=== PATIENT | female | born 1930 | race Caucasian/White ===

== ENCOUNTER 2017-12-13 11:30 | Inpatient (IN) | payer MEDICARE, MEDICAID ==
[~2017-12-13] VITALS: Ht 152.4 cm; Wt 48.1 kg
[~2017-12-13 11:30] MED LIST: LEVO75TA7 PO; OLME5TAB3 PO
[2017-12-13] MEDS ORDERED: Z GUARD REMEDY PASTE 57 GM TUBE TOP PRN (13:00)
[2017-12-13 13:16] VITALS: BP 165/60
[2017-12-13] MEDS ORDERED: ESCI20TA PO (13:58)
[2017-12-13] MEDS ORDERED: APIX2.5T PO (13:58)
[2017-12-13] MEDS ORDERED: ERGO500014 PO (13:58)
[2017-12-13] MEDS ORDERED: AMLO5TAB4 PO (13:58)
[2017-12-13] MEDS ORDERED: METO-356 PO (13:58)
[2017-12-13] MEDS ORDERED: NITR0.4T48 SL (13:58)
[2017-12-13] MEDS ORDERED: LEVO100T78 PO (13:58)
[2017-12-13] MEDS ORDERED: DENO60DI IM (13:58)
[2017-12-13] MEDS ORDERED: ACET-2605 PO (13:58)
[2017-12-13] MEDS ORDERED: NITROGLYCERIN 0.4 MG/TAB BOTTLE SL PRN (20:15)
[2017-12-13] MEDS ORDERED: APIXABAN 5 MG TABLET PO ONE ×2 (20:30→20:45)
[2017-12-13 20:59] VITALS: BP 124/61
[2017-12-13] MEDS: MAGNESIUM HYDROXIDE 30 ML LIQUID UDC PO PRN (21:18)
[2017-12-13] MEDS: ZOLPIDEM 5 MG TABLET PO PRN (21:52)
[2017-12-14] MEDS: LEVOTHYROXINE SODIUM 100 MCG TABLET PO SCH ×4 (06:40→16:30)
[2017-12-14 07:29] LABS: EOSINOPHILS # (AUTO) 0.2 K/uL (0.0-0.7); MONOCYTES # (AUTO) 0.7 K/uL (2.0-10.0)
[2017-12-14 07:31] LABS: BASOPHILS % (AUTO) 0.5 % (0.0-2.0); EOSINOPHILS % (AUTO) 2.6 % (0.0-7.0); LYMPHOCYTES # (AUTO) 1.3 K/uL (20.0-40.0); LYMPHOCYTES % (AUTO) 15.8 % (20.5-51.5); MEAN CORPUSCULAR VOLUME 94.9 fL (75.5-95.3); MONOCYTES % (AUTO) 9.1 % (0.0-11.0); NEUTROPHILS # (AUTO) 5.8 K/uL (1.8-8.9)
[2017-12-14 07:34] LABS: MEAN CORPUSCULAR HGB CONC 34 g/dL (32.3-35.6)
[2017-12-14 07:35] LABS: MEAN CORPUSCULAR HEMOGLOBIN 32.5 uug (24.7-32.8); PLATELET COUNT (AUTO) 354 K/uL (179-408)
[2017-12-14 07:38] LABS: HEMOGLOBIN 7.4 g/dL (10.9-14.3)
[2017-12-14 07:39] LABS: RED BLOOD CELL COUNT(AUTO) 2.24 MIL/uL (3.63-4.92)
[2017-12-14 07:40] LABS: CARBON DIOXIDE 25 mmol/L (21-32); CHLORIDE 99 mmol/L (98-107); CHOLESTEROL 117 mg/dL (<200); CREATININE 0.4 mg/dL (0.6-1.3); GLUCOSE 97 mg/dL (74-106); HDL CHOLESTEROL 46 mg/dL (40-60); HEMATOCRIT 21.5 % (31.2-41.9); MAGNESIUM 2.4 mg/dL (1.8-2.4); PHOSPHOROUS 1.8 mg/dL (2.5-4.9); POTASSIUM 3.9 mmol/L (3.5-5.1); TRIGLYCERIDES 39 MG/DL (30-150); UREA NITROGEN, BLOOD 11 mg/dL (7-18); WHITE BLOOD COUNT (AUTO) 8.1 K/uL (3.8-11.8)
[2017-12-14 08:56] VITALS: BP 127/74
[2017-12-14] MEDS ORDERED: LEVOTHYROXINE SODIUM 75 MCG TABLET PO SCH (09:00)
[2017-12-14] MEDS: AMLODIPINE 5 MG TABLET PO SCH (09:00)
[2017-12-14] MEDS ORDERED: APIXABAN 5 MG TABLET PO SCH ×2 (09:00→17:00)
[2017-12-14] MEDS: LOSARTAN POTASSIUM 25 MG TABLET PO SCH (09:00)
[2017-12-14] MEDS: METOPROLOL SUCCINATE XL 25 MG TAB.SR.24H PO SCH (09:00)
[2017-12-14] MEDS ORDERED: APIXABAN 5 MG TABLET PO ONE (09:15)
[2017-12-14 10:25] LABS: IRON, SERUM 44 ug/dL (50-175)
[2017-12-14] MEDS: ESCITALOPRAM OXALATE 10 MG TABLET PO SCH (10:33)
[2017-12-14] MEDS: ACETAMINOPHEN ES 500 MG TABLET PO PRN ×2 (10:40→19:28)
[2017-12-14 11:30] LABS: *OCCULT BLOOD STOOL NEGATIVE (NEGATIVE)
[2017-12-14] MEDS ORDERED: NEUTRA PHOS PACKET PO ONE (15:30)
[2017-12-14] MEDS: ELIQUIS 2.5 MG ***PT'S OWN MED PO SCH (17:01)
[2017-12-14] MEDS: ZOLPIDEM 5 MG TABLET PO PRN (19:27)
[2017-12-14 20:38] VITALS: BP 129/72
[2017-12-15 07:00] VITALS: BP 134/71
[2017-12-15 07:18] LABS: CARBON DIOXIDE 24 mmol/L (21-32); CHLORIDE 97 mmol/L (98-107); CREATININE 0.4 mg/dL (0.6-1.3); GLUCOSE 113 mg/dL (74-106); PHOSPHOROUS 2.3 mg/dL (2.5-4.9); POTASSIUM 4.1 mmol/L (3.5-5.1); UREA NITROGEN, BLOOD 9 mg/dL (7-18)
[2017-12-15] MEDS: LEVOTHYROXINE SODIUM 100 MCG TABLET PO SCH (07:48)
[2017-12-15] MEDS: ELIQUIS 2.5 MG ***PT'S OWN MED PO SCH ×2 (08:34→17:14)
[2017-12-15] MEDS: LOSARTAN POTASSIUM 25 MG TABLET PO SCH (08:50)
[2017-12-15] MEDS: AMLODIPINE 5 MG TABLET PO SCH (08:50)
[2017-12-15] MEDS: ESCITALOPRAM OXALATE 10 MG TABLET PO SCH (08:50)
[2017-12-15] MEDS: METOPROLOL SUCCINATE XL 25 MG TAB.SR.24H PO SCH (08:51)
[2017-12-15] MEDS: ACETAMINOPHEN ES 500 MG TABLET PO PRN (09:22)
[2017-12-15] MEDS: SODIUM CHLORIDE 1,000 MG TABLET PO SCH ×2 (13:46→17:14)
[2017-12-15] MEDS ORDERED: NEUTRA PHOS PACKET PO ONE (16:00)
[2017-12-15] MEDS: ZOLPIDEM 5 MG TABLET PO PRN (19:50)
[2017-12-15] MEDS: MAGNESIUM HYDROXIDE 30 ML LIQUID UDC PO PRN (19:51)
[2017-12-15 20:12] VITALS: BP 136/80
[2017-12-16] MEDS: ACETAMINOPHEN ES 500 MG TABLET PO PRN ×2 (00:14→20:11)
[2017-12-16] MEDS: LEVOTHYROXINE SODIUM 100 MCG TABLET PO SCH (06:13)
[2017-12-16 07:13] LABS: BASOPHILS % (AUTO) 0.6 % (0.0-2.0); EOSINOPHILS # (AUTO) 0.2 K/uL (0.0-0.7); EOSINOPHILS % (AUTO) 2.4 % (0.0-7.0); HEMATOCRIT 23.9 % (31.2-41.9); HEMOGLOBIN 8.1 g/dL (10.9-14.3); LYMPHOCYTES # (AUTO) 1.2 K/uL (20.0-40.0); LYMPHOCYTES % (AUTO) 15.7 % (20.5-51.5); MEAN CORPUSCULAR HEMOGLOBIN 32.7 uug (24.7-32.8); MEAN CORPUSCULAR HGB CONC 34 g/dL (32.3-35.6); MEAN CORPUSCULAR VOLUME 96.3 fL (75.5-95.3); MONOCYTES # (AUTO) 0.7 K/uL (2.0-10.0); MONOCYTES % (AUTO) 9.4 % (0.0-11.0); NEUTROPHILS # (AUTO) 5.4 K/uL (1.8-8.9); NEUTROPHILS % (AUTO) 71.9 % (38.5-71.5); PLATELET COUNT (AUTO) 459 K/uL (179-408); WHITE BLOOD COUNT (AUTO) 7.5 K/uL (3.8-11.8)
[2017-12-16 07:15] LABS: RED BLOOD CELL COUNT(AUTO) 2.49 MIL/uL (3.63-4.92)
[2017-12-16 07:24] LABS: CARBON DIOXIDE 28 mmol/L (21-32); CHLORIDE 100 mmol/L (98-107); CREATININE 0.5 mg/dL (0.6-1.3); GLUCOSE 104 mg/dL (74-106); MAGNESIUM 2.3 mg/dL (1.8-2.4); PHOSPHOROUS 2.2 mg/dL (2.5-4.9); POTASSIUM 3.9 mmol/L (3.5-5.1); UREA NITROGEN, BLOOD 11 mg/dL (7-18)
[2017-12-16] MEDS: ELIQUIS 2.5 MG ***PT'S OWN MED PO SCH ×2 (08:30→16:06)
[2017-12-16] MEDS: ESCITALOPRAM OXALATE 10 MG TABLET PO SCH (09:00)
[2017-12-16] MEDS: SODIUM CHLORIDE 1,000 MG TABLET PO SCH ×3 (09:00→16:06)
[2017-12-16] MEDS: AMLODIPINE 5 MG TABLET PO SCH (09:00)
[2017-12-16] MEDS: LOSARTAN POTASSIUM 25 MG TABLET PO SCH (09:00)
[2017-12-16] MEDS: METOPROLOL SUCCINATE XL 25 MG TAB.SR.24H PO SCH (09:00)
[2017-12-16 09:12] VITALS: BP 132/82
[2017-12-16] MEDS ORDERED: NEUTRA PHOS PACKET PO ONE (15:15)
[2017-12-16 19:59] VITALS: BP 131/75
[2017-12-17] MEDS: LEVOTHYROXINE SODIUM 100 MCG TABLET PO SCH (06:45)
[2017-12-17 06:52] LABS: BASOPHILS # (AUTO) 0.1 K/uL (0.0-8.0); BASOPHILS % (AUTO) 0.7 % (0.0-2.0); EOSINOPHILS # (AUTO) 0.2 K/uL (0.0-0.7); EOSINOPHILS % (AUTO) 1.7 % (0.0-7.0); HEMATOCRIT 24.1 % (31.2-41.9); HEMOGLOBIN 8.3 g/dL (10.9-14.3); LYMPHOCYTES # (AUTO) 1.2 K/uL (20.0-40.0); LYMPHOCYTES % (AUTO) 11.8 % (20.5-51.5); MEAN CORPUSCULAR HEMOGLOBIN 33.5 uug (24.7-32.8); MEAN CORPUSCULAR HGB CONC 35 g/dL (32.3-35.6); MEAN CORPUSCULAR VOLUME 96.7 fL (75.5-95.3); MONOCYTES # (AUTO) 0.9 K/uL (2.0-10.0); MONOCYTES % (AUTO) 9.5 % (0.0-11.0); NEUTROPHILS # (AUTO) 7.5 K/uL (1.8-8.9); NEUTROPHILS % (AUTO) 76.3 % (38.5-71.5); PLATELET COUNT (AUTO) 473 K/uL (179-408); WHITE BLOOD COUNT (AUTO) 9.8 K/uL (3.8-11.8)
[2017-12-17 06:58] LABS: RED BLOOD CELL COUNT(AUTO) 2.49 MIL/uL (3.63-4.92)
[2017-12-17] MEDS: ELIQUIS 2.5 MG ***PT'S OWN MED PO SCH ×2 (08:55→17:29)
[2017-12-17] MEDS: SODIUM CHLORIDE 1,000 MG TABLET PO SCH ×3 (08:55→17:29)
[2017-12-17] MEDS: LOSARTAN POTASSIUM 25 MG TABLET PO SCH (08:58)
[2017-12-17] MEDS: ESCITALOPRAM OXALATE 10 MG TABLET PO SCH (09:00)
[2017-12-17] MEDS: AMLODIPINE 5 MG TABLET PO SCH (09:00)
[2017-12-17] MEDS: METOPROLOL SUCCINATE XL 25 MG TAB.SR.24H PO SCH (09:00)
[2017-12-17 10:25] VITALS: BP 117/76
[2017-12-17] MEDS: MAGNESIUM HYDROXIDE 30 ML LIQUID UDC PO PRN (11:21)
[2017-12-17 20:17] VITALS: BP 124/63
[2017-12-17] MEDS: ZOLPIDEM 5 MG TABLET PO PRN (20:20)
[2017-12-18] MEDS: LEVOTHYROXINE SODIUM 100 MCG TABLET PO SCH (06:31)
[2017-12-18 07:44] VITALS: BP 132/69
[2017-12-18] MEDS: ELIQUIS 2.5 MG ***PT'S OWN MED PO SCH ×2 (08:04→17:28)
[2017-12-18] MEDS: SODIUM CHLORIDE 1,000 MG TABLET PO SCH ×3 (08:04→17:28)
[2017-12-18] MEDS: AMLODIPINE 5 MG TABLET PO SCH (08:04)
[2017-12-18] MEDS: METOPROLOL SUCCINATE XL 25 MG TAB.SR.24H PO SCH (08:04)
[2017-12-18] MEDS: LOSARTAN POTASSIUM 25 MG TABLET PO SCH (08:05)
[2017-12-18] MEDS: ESCITALOPRAM OXALATE 10 MG TABLET PO SCH (08:05)
[2017-12-18 19:40] VITALS: BP 151/82
[2017-12-18] MEDS: MAGNESIUM HYDROXIDE 30 ML LIQUID UDC PO PRN (21:01)
[2017-12-18] MEDS: ZOLPIDEM 5 MG TABLET PO PRN (21:02)
[2017-12-19] MEDS: LEVOTHYROXINE SODIUM 100 MCG TABLET PO SCH (06:19)
[2017-12-19 07:00] VITALS: BP 142/72
[2017-12-19] MEDS: ELIQUIS 2.5 MG ***PT'S OWN MED PO SCH ×2 (08:50→17:01)
[2017-12-19] MEDS: METOPROLOL SUCCINATE XL 25 MG TAB.SR.24H PO SCH (09:00)
[2017-12-19] MEDS: LOSARTAN POTASSIUM 25 MG TABLET PO SCH (09:00)
[2017-12-19] MEDS: AMLODIPINE 5 MG TABLET PO SCH (09:00)
[2017-12-19] MEDS: ESCITALOPRAM OXALATE 10 MG TABLET PO SCH (09:00)
[2017-12-19] MEDS: SODIUM CHLORIDE 1,000 MG TABLET PO SCH ×3 (09:00→17:01)
[2017-12-19] MEDS: MAGNESIUM HYDROXIDE 30 ML LIQUID UDC PO PRN (17:01)
[2017-12-19 21:18] VITALS: BP 138/71
[2017-12-20] MEDS: LEVOTHYROXINE SODIUM 100 MCG TABLET PO SCH (06:30)
[2017-12-20 07:00] VITALS: BP 135/82
[2017-12-20] MEDS: ELIQUIS 2.5 MG ***PT'S OWN MED PO SCH ×2 (08:01→17:03)
[2017-12-20] MEDS: SODIUM CHLORIDE 1,000 MG TABLET PO SCH ×3 (08:01→17:03)
[2017-12-20] MEDS: MAGNESIUM HYDROXIDE 30 ML LIQUID UDC PO PRN (08:05)
[2017-12-20] MEDS: LOSARTAN POTASSIUM 25 MG TABLET PO SCH (08:07)
[2017-12-20] MEDS: AMLODIPINE 5 MG TABLET PO SCH (08:08)
[2017-12-20] MEDS: ESCITALOPRAM OXALATE 10 MG TABLET PO SCH (08:08)
[2017-12-20] MEDS: METOPROLOL SUCCINATE XL 25 MG TAB.SR.24H PO SCH (08:09)
[2017-12-20] MEDS: CYANOCOBALAMIN 1000 MCG/ML VIAL IM SCH (17:00)
[2017-12-20] MEDS: ZOLPIDEM 5 MG TABLET PO PRN (20:20)
[2017-12-20 20:27] VITALS: BP 136/78
[2017-12-21] MEDS: LEVOTHYROXINE SODIUM 100 MCG TABLET PO SCH (06:32)
[2017-12-21] MEDS: ELIQUIS 2.5 MG ***PT'S OWN MED PO SCH ×2 (08:28→16:46)
[2017-12-21] MEDS: SODIUM CHLORIDE 1,000 MG TABLET PO SCH ×3 (08:28→16:46)
[2017-12-21] MEDS: ESCITALOPRAM OXALATE 10 MG TABLET PO SCH (08:30)
[2017-12-21] MEDS: LOSARTAN POTASSIUM 25 MG TABLET PO SCH (08:30)
[2017-12-21] MEDS: CYANOCOBALAMIN 1000 MCG/ML VIAL IM SCH (08:32)
[2017-12-21] MEDS: AMLODIPINE 5 MG TABLET PO SCH (08:39)
[2017-12-21] MEDS: METOPROLOL SUCCINATE XL 25 MG TAB.SR.24H PO SCH (08:39)
[2017-12-21] MEDS ORDERED: CYANOCOBALAMIN 1000 MCG/ML VIAL IM SCH (09:00)
[2017-12-21 09:25] VITALS: BP 161/88
[2017-12-21] MEDS: SULFAMETH/TRIMETH 800/160 MG TABLET PO SCH ×2 (13:26→16:46)
[2017-12-21] MEDS: NEOMY/BACITRAC/POLYMI OINT 28.35 GM TUBE TOP SCH ×2 (16:46→16:50)
[2017-12-21 19:51] VITALS: BP 142/70
[2017-12-21 20:01] VITALS: BP 142/70
[2017-12-21 20:09] VITALS: BP 137/75
[2017-12-21] MEDS: ZOLPIDEM 5 MG TABLET PO PRN (20:38)
[2017-12-22] MEDS: ACETAMINOPHEN ES 500 MG TABLET PO PRN (02:18)
[2017-12-22] MEDS: LEVOTHYROXINE SODIUM 100 MCG TABLET PO SCH (06:20)
[2017-12-22 07:30] VITALS: BP 132/77
[2017-12-22] MEDS: SODIUM CHLORIDE 1,000 MG TABLET PO SCH ×3 (08:27→17:10)
[2017-12-22] MEDS: SULFAMETH/TRIMETH 800/160 MG TABLET PO SCH ×2 (08:27→17:10)
[2017-12-22] MEDS: ELIQUIS 2.5 MG ***PT'S OWN MED PO SCH ×2 (08:28→17:10)
[2017-12-22] MEDS: CYANOCOBALAMIN 1000 MCG/ML VIAL IM SCH (08:29)
[2017-12-22] MEDS: LOSARTAN POTASSIUM 25 MG TABLET PO SCH (08:30)
[2017-12-22] MEDS: AMLODIPINE 5 MG TABLET PO SCH (08:34)
[2017-12-22] MEDS: ESCITALOPRAM OXALATE 10 MG TABLET PO SCH (08:34)
[2017-12-22] MEDS: METOPROLOL SUCCINATE XL 25 MG TAB.SR.24H PO SCH (08:34)
[2017-12-22] MEDS: NEOMY/BACITRAC/POLYMI OINT 28.35 GM TUBE TOP SCH ×2 (10:17→17:00)
[2017-12-22 19:57] VITALS: BP 120/73
[2017-12-22] MEDS: ZOLPIDEM 5 MG TABLET PO PRN (21:28)
[2017-12-23] MEDS: LEVOTHYROXINE SODIUM 100 MCG TABLET PO SCH (06:35)
[2017-12-23 07:30] VITALS: BP 136/71
[2017-12-23 07:34] LABS: BASOPHILS # (AUTO) 0.1 K/uL (0.0-8.0); BASOPHILS % (AUTO) 0.9 % (0.0-2.0); EOSINOPHILS # (AUTO) 0.2 K/uL (0.0-0.7); EOSINOPHILS % (AUTO) 2.1 % (0.0-7.0); HEMATOCRIT 29.7 % (31.2-41.9); HEMOGLOBIN 9.8 g/dL (10.9-14.3); LYMPHOCYTES # (AUTO) 1.2 K/uL (20.0-40.0); LYMPHOCYTES % (AUTO) 16.2 % (20.5-51.5); MEAN CORPUSCULAR HEMOGLOBIN 32.9 uug (24.7-32.8); MEAN CORPUSCULAR HGB CONC 33 g/dL (32.3-35.6); MEAN CORPUSCULAR VOLUME 99.8 fL (75.5-95.3); MONOCYTES # (AUTO) 0.6 K/uL (2.0-10.0); MONOCYTES % (AUTO) 8.4 % (0.0-11.0); NEUTROPHILS # (AUTO) 5.4 K/uL (1.8-8.9); NEUTROPHILS % (AUTO) 72.4 % (38.5-71.5); PLATELET COUNT (AUTO) 494 K/uL (179-408); RED BLOOD CELL COUNT(AUTO) 2.98 MIL/uL (3.63-4.92); WHITE BLOOD COUNT (AUTO) 7.5 K/uL (3.8-11.8)
[2017-12-23 07:37] LABS: ALANINE AMINOTRANSFERASE 15 U/L (14-59); ALKALINE PHOSPHATASE 124 U/L (50-136); ASPARTATE AMINOTRANSFERASE 21 U/L (15-37); BILIRUBIN,TOTAL 1.2 mg/dL (0.2-1.0); CARBON DIOXIDE 26 mmol/L (21-32); CHLORIDE 101 mmol/L (98-107); CREATININE 0.6 mg/dL (0.6-1.3); GLUCOSE 105 mg/dL (74-106); PHOSPHOROUS 2.9 mg/dL (2.5-4.9); POTASSIUM 4.2 mmol/L (3.5-5.1); TOTAL PROTEIN, SERUM 6.2 g/dL (6.4-8.2); UREA NITROGEN, BLOOD 13 mg/dL (7-18)
[2017-12-23] MEDS: CYANOCOBALAMIN 1000 MCG/ML VIAL IM SCH (08:39)
[2017-12-23] MEDS: ESCITALOPRAM OXALATE 10 MG TABLET PO SCH (08:40)
[2017-12-23] MEDS: ELIQUIS 2.5 MG ***PT'S OWN MED PO SCH ×2 (08:40→17:23)
[2017-12-23] MEDS: SODIUM CHLORIDE 1,000 MG TABLET PO SCH ×3 (08:40→17:23)
[2017-12-23] MEDS: SULFAMETH/TRIMETH 800/160 MG TABLET PO SCH ×2 (08:40→17:23)
[2017-12-23] MEDS: LOSARTAN POTASSIUM 25 MG TABLET PO SCH (08:40)
[2017-12-23] MEDS: NEOMY/BACITRAC/POLYMI OINT 28.35 GM TUBE TOP SCH ×2 (08:41→17:25)
[2017-12-23] MEDS: AMLODIPINE 5 MG TABLET PO SCH (08:41)
[2017-12-23] MEDS: METOPROLOL SUCCINATE XL 25 MG TAB.SR.24H PO SCH (08:41)
[2017-12-23] MEDS: ZOLPIDEM 5 MG TABLET PO PRN (18:33)
[2017-12-23 19:30] VITALS: BP 150/67
[2017-12-24] MEDS: LEVOTHYROXINE SODIUM 100 MCG TABLET PO SCH (06:37)
[2017-12-24 08:02] VITALS: BP 143/84
[2017-12-24] MEDS: CYANOCOBALAMIN 1000 MCG/ML VIAL IM SCH (08:40)
[2017-12-24] MEDS: SULFAMETH/TRIMETH 800/160 MG TABLET PO SCH ×2 (08:40→17:08)
[2017-12-24] MEDS: SODIUM CHLORIDE 1,000 MG TABLET PO SCH ×3 (08:41→17:08)
[2017-12-24] MEDS: ELIQUIS 2.5 MG ***PT'S OWN MED PO SCH ×2 (08:41→17:08)
[2017-12-24] MEDS: LOSARTAN POTASSIUM 25 MG TABLET PO SCH (08:42)
[2017-12-24] MEDS: NEOMY/BACITRAC/POLYMI OINT 28.35 GM TUBE TOP SCH ×2 (08:42→17:08)
[2017-12-24] MEDS: AMLODIPINE 5 MG TABLET PO SCH (08:43)
[2017-12-24] MEDS: ESCITALOPRAM OXALATE 10 MG TABLET PO SCH (08:43)
[2017-12-24] MEDS: METOPROLOL SUCCINATE XL 25 MG TAB.SR.24H PO SCH (08:43)
[2017-12-24 19:57] VITALS: BP 144/81
[2017-12-24] MEDS: ZOLPIDEM 5 MG TABLET PO PRN (20:41)
[2017-12-25] MEDS: ACETAMINOPHEN ES 500 MG TABLET PO PRN (01:15)
[2017-12-25] MEDS: LEVOTHYROXINE SODIUM 100 MCG TABLET PO SCH (06:44)
[2017-12-25 07:02] VITALS: BP 139/90
[2017-12-25] MEDS: SODIUM CHLORIDE 1,000 MG TABLET PO SCH ×3 (08:36→17:30)
[2017-12-25] MEDS: CYANOCOBALAMIN 1000 MCG/ML VIAL IM SCH (08:36)
[2017-12-25] MEDS: LOSARTAN POTASSIUM 25 MG TABLET PO SCH ×2 (08:37→09:00)
[2017-12-25] MEDS: ESCITALOPRAM OXALATE 10 MG TABLET PO SCH ×2 (08:37→09:00)
[2017-12-25] MEDS: ELIQUIS 2.5 MG ***PT'S OWN MED PO SCH ×2 (08:37→17:30)
[2017-12-25] MEDS: NEOMY/BACITRAC/POLYMI OINT 28.35 GM TUBE TOP SCH ×2 (08:38→17:30)
[2017-12-25] MEDS: METOPROLOL SUCCINATE XL 25 MG TAB.SR.24H PO SCH (08:43)
[2017-12-25] MEDS: AMLODIPINE 5 MG TABLET PO SCH (08:43)
[2017-12-25 19:57] VITALS: BP 118/73
[2017-12-25] MEDS: ZOLPIDEM 5 MG TABLET PO PRN (21:52)
[2017-12-26] MEDS: LEVOTHYROXINE SODIUM 100 MCG TABLET PO SCH (06:23)
[2017-12-26] MEDS: ELIQUIS 2.5 MG ***PT'S OWN MED PO SCH ×2 (08:17→17:49)
[2017-12-26] MEDS: SODIUM CHLORIDE 1,000 MG TABLET PO SCH ×3 (08:17→17:49)
[2017-12-26 08:18] VITALS: BP 142/89
[2017-12-26] MEDS: CYANOCOBALAMIN 1000 MCG/ML VIAL IM SCH (08:18)
[2017-12-26] MEDS: ESCITALOPRAM OXALATE 10 MG TABLET PO SCH (08:19)
[2017-12-26] MEDS: LOSARTAN POTASSIUM 25 MG TABLET PO SCH (08:19)
[2017-12-26] MEDS: AMLODIPINE 5 MG TABLET PO SCH (08:19)
[2017-12-26] MEDS: METOPROLOL SUCCINATE XL 25 MG TAB.SR.24H PO SCH (08:19)
[2017-12-26] MEDS: NEOMY/BACITRAC/POLYMI OINT 28.35 GM TUBE TOP SCH ×2 (08:20→17:50)
[2017-12-26 20:11] VITALS: BP 142/67
[2017-12-26] MEDS: ZOLPIDEM 5 MG TABLET PO PRN (20:46)
[2017-12-27] MEDS: LEVOTHYROXINE SODIUM 100 MCG TABLET PO SCH (06:50)
[2017-12-27 08:00] VITALS: BP 155/89
[2017-12-27] MEDS: SODIUM CHLORIDE 1,000 MG TABLET PO SCH ×3 (08:31→17:26)
[2017-12-27] MEDS: ELIQUIS 2.5 MG ***PT'S OWN MED PO SCH ×2 (08:31→17:26)
[2017-12-27] MEDS: CYANOCOBALAMIN 1000 MCG/ML VIAL IM SCH (08:31)
[2017-12-27] MEDS: LOSARTAN POTASSIUM 25 MG TABLET PO SCH (08:32)
[2017-12-27] MEDS: ESCITALOPRAM OXALATE 10 MG TABLET PO SCH (08:32)
[2017-12-27] MEDS: AMLODIPINE 5 MG TABLET PO SCH (08:33)
[2017-12-27] MEDS: METOPROLOL SUCCINATE XL 25 MG TAB.SR.24H PO SCH (08:33)
[2017-12-27] MEDS: NEOMY/BACITRAC/POLYMI OINT 28.35 GM TUBE TOP SCH ×2 (08:34→17:27)
[2017-12-27 19:30] VITALS: BP 152/79
[2017-12-27] MEDS: ACETAMINOPHEN ES 500 MG TABLET PO PRN (21:57)
[2017-12-27] MEDS ORDERED: ZOLPIDEM 5 MG TABLET PO PRN (22:30)
[2017-12-28] MEDS: LEVOTHYROXINE SODIUM 100 MCG TABLET PO SCH (06:41)
[2017-12-28 07:00] VITALS: BP 159/85
[2017-12-28] MEDS: ELIQUIS 2.5 MG ***PT'S OWN MED PO SCH ×2 (08:28→17:11)
[2017-12-28] MEDS: CYANOCOBALAMIN 1000 MCG/ML VIAL IM SCH (08:28)
[2017-12-28] MEDS: SODIUM CHLORIDE 1,000 MG TABLET PO SCH ×3 (08:28→17:11)
[2017-12-28] MEDS: LOSARTAN POTASSIUM 25 MG TABLET PO SCH (08:29)
[2017-12-28] MEDS: ESCITALOPRAM OXALATE 10 MG TABLET PO SCH (08:29)
[2017-12-28] MEDS: AMLODIPINE 5 MG TABLET PO SCH (08:29)
[2017-12-28] MEDS: NEOMY/BACITRAC/POLYMI OINT 28.35 GM TUBE TOP SCH ×2 (08:29→17:11)
[2017-12-28] MEDS: METOPROLOL SUCCINATE XL 25 MG TAB.SR.24H PO SCH (08:29)
[2017-12-28 19:42] VITALS: BP 135/80
[2017-12-29] MEDS: LEVOTHYROXINE SODIUM 100 MCG TABLET PO SCH (06:43)
[2017-12-29] MEDS: SODIUM CHLORIDE 1,000 MG TABLET PO SCH ×2 (08:18→12:59)
[2017-12-29] MEDS: CYANOCOBALAMIN 1000 MCG/ML VIAL IM SCH (08:19)
[2017-12-29] MEDS: ELIQUIS 2.5 MG ***PT'S OWN MED PO SCH (08:19)
[2017-12-29] MEDS: NEOMY/BACITRAC/POLYMI OINT 28.35 GM TUBE TOP SCH (08:21)
[2017-12-29] MEDS: AMLODIPINE 5 MG TABLET PO SCH (08:26)
[2017-12-29] MEDS: LOSARTAN POTASSIUM 25 MG TABLET PO SCH (08:26)
[2017-12-29] MEDS: ESCITALOPRAM OXALATE 10 MG TABLET PO SCH (08:26)
[2017-12-29] MEDS: METOPROLOL SUCCINATE XL 25 MG TAB.SR.24H PO SCH (08:27)
[2017-12-29 09:57] VITALS: BP 159/58
== END 2017-12-29 17:56 | disposition home health service (06) | DRG 560 ==
LOC: SA1 17:07
PROVIDERS: ADMIT Physical Medicine & Rehabilitation Pain Medicine; ATTEND Physical Medicine & Rehabilitation Pain Medicine
DX: S72.142D Displaced intertrochanteric fracture of left femur, subsequent encounter for closed fracture with routine healing (principal); E22.2 Syndrome of inappropriate secretion of antidiuretic hormone; E46 Unspecified protein-calorie malnutrition; D68.59 Other primary thrombophilia; L03.116 Cellulitis of left lower limb; I48.91 Unspecified atrial fibrillation; E03.9 Hypothyroidism, unspecified; D50.9 Iron deficiency anemia, unspecified; T81.4XXA Infection following a procedure, initial encounter; E53.8 Deficiency of other specified B group vitamins; E78.5 Hyperlipidemia, unspecified; I10 Essential (primary) hypertension; W19.XXXD Unspecified fall, subsequent encounter; K21.9 Gastro-esophageal reflux disease without esophagitis; R26.9 Unspecified abnormalities of gait and mobility; Z68.20 Body mass index [BMI] 20.0-20.9, adult; E55.9 Vitamin D deficiency, unspecified; F01.50 Vascular dementia, unspecified severity, without behavioral disturbance, psychotic disturbance, mood disturbance, and anxiety; F32.9 Major depressive disorder, single episode, unspecified; Y83.8 Other surgical procedures as the cause of abnormal reaction of the patient, or of later complication, without mention of misadventure at the time of the procedure; Y92.239 Unspecified place in hospital as the place of occurrence of the external cause; M81.0 Age-related osteoporosis without current pathological fracture; I69.398 Other sequelae of cerebral infarction
CPT/HCPCS: 36415; 83550; 83735; 84100; 85025; 92526; 92610; 97110; 97112; 97116; 97530; 97535; A4663; A9150; J3420

== ENCOUNTER → 2019-05-23 | Emergency (ER) | payer MEDICARE, MEDICAID ==
[~2019-05-23] VITALS: Ht 165.1 cm; Wt 54.4 kg
[~2019-05-23] MED LIST changes: +ACET-2605 PO; +AMLO10TA7 PO; +AMLO5TAB4 PO; +APIX2.5T PO; +ATOR40TA PO; +DENO60DI IM; +DOCU100C36 PO; +ERGO500014 PO; +ESCI20TA PO; +IOHEXOL 350 100 ML INFUS..BTL ONE; +IV NORMAL SALINE 250 ML IV ONE; +LABETALOL HCL 100 MG/20 ML VIAL IV ONE; +LABETALOL HCL 100 MG/20 ML VIAL ONE; +LEVETIRACETAM 500 MG/5 ML VIAL IV ONE; +LEVETIRACETAM IV 500 MG in IV DEXTROSE 5% 100 ML IV ONE; +LEVO100T78 PO; +METO-356 PO; +METO25TA6 PO; +NITR0.4T48 SL; +ONDA4TAB5 PO; +ONDANSETRON 4 MG/2 ML VIAL IV ONE; +ONDANSETRON 4 MG/2 ML VIAL ONE; +PANT40TA4 PO; +POLY17PO4 PO; +SWABABLE VALVE TRANSFER SET EA MC ONE; +hydrALAZINE HCL 20 MG/1 ML VIAL IV ONE; +hydrALAZINE HCL 20 MG/1 ML VIAL ONE
--- NOTE | 2019-05-23 12:21 | NUR ---
PT IS IN ROOM #2A. DR ORTIZ EVALUATED THE PT.
--- NOTE | 2019-05-23 12:25 | NUR ---
Pt's daughter arrived and is at bedside speaking with her.
--- NOTE | 2019-05-23 12:31 | NUR ---
Code Stroke activated by .
--- NOTE | 2019-05-23 12:33 | NUR ---
Pt to CT via [facility] with technical producer and Jean Carlos Turpin RN, ACLS guidelines in place.
--- NOTE | 2019-05-23 12:34 | NUR ---
Telestroke Line called per protocol.
[2019-05-23 12:38] LABS: BASOPHILS # (AUTO) 0.1 K/uL (0.0-8.0); BASOPHILS % (AUTO) 0.7 % (0.0-2.0); EOSINOPHILS # (AUTO) 0.2 K/uL (0.0-0.7); EOSINOPHILS % (AUTO) 1.6 % (0.0-7.0); HEMATOCRIT 43.7 % (31.2-41.9); HEMOGLOBIN 14.4 g/dL (10.9-14.3); LYMPHOCYTES # (AUTO) 1.6 K/uL (20.0-40.0); LYMPHOCYTES % (AUTO) 17.5 % (20.5-51.5); MEAN CORPUSCULAR HEMOGLOBIN 31.3 uug (24.7-32.8); MEAN CORPUSCULAR HGB CONC 33 g/dL (32.3-35.6); MEAN CORPUSCULAR VOLUME 95.2 fL (75.5-95.3); MONOCYTES # (AUTO) 0.6 K/uL (2.0-10.0); MONOCYTES % (AUTO) 6.4 % (0.0-11.0); NEUTROPHILS # (AUTO) 6.9 K/uL (1.8-8.9); NEUTROPHILS % (AUTO) 73.8 % (38.5-71.5); PLATELET COUNT (AUTO) 243 K/uL (179-408); RED BLOOD CELL COUNT(AUTO) 4.59 MIL/uL (3.63-4.92); WHITE BLOOD COUNT (AUTO) 9.3 K/uL (3.8-11.8)
[2019-05-23 12:45] LABS: CARBON DIOXIDE 25 mmol/L (21-32); CHLORIDE 95 mmol/L (98-107); CREATININE 0.5 mg/dL (0.6-1.3); GLUCOSE 172 mg/dL (74-106); POTASSIUM 3.5 mmol/L (3.5-5.1); UREA NITROGEN, BLOOD 10 mg/dL (7-18)
--- NOTE | 2019-05-23 13:00 | NUR ---
Pt back from CT and was re-eval by ANG.
[2019-05-23 13:02] LABS: ALANINE AMINOTRANSFERASE 31 U/L (14-59); ALKALINE PHOSPHATASE 113 U/L (50-136); ASPARTATE AMINOTRANSFERASE 33 U/L (15-37); BILIRUBIN,DIRECT 0.3 mg/dL (0.0-0.2); BILIRUBIN,TOTAL 2.1 mg/dL (0.2-1.0); CHOLESTEROL 195 mg/dL (<200); HDL CHOLESTEROL 118 mg/dL (40-60); TOTAL PROTEIN, SERUM 7.8 g/dL (6.4-8.2); TRIGLYCERIDES 68 MG/DL (30-150)
--- NOTE | 2019-05-23 13:02 | NUR ---
DR ORTIZ TALKED TO NEUROLOGIST DR PALAFOX. PT IS GOING TO BE TRANSFERED TO [facility]IA [facility].
[2019-05-23 13:16] VITALS: BP 167/96
--- NOTE | 2019-05-23 14:43 | NUR ---
PT IS GOING TO [facility], BED #4513-1, [facility]IA [facility]. ADMITING MD IS DR WATERS. REPORT WAS GIVEN TO AMBULANCE RN AND TO [facility] BIB LIN ([phone] ext: [phone]).
== END | disposition home or self-care (01) ==
LOC: ER 12:13
DX: I61.5 Nontraumatic intracerebral hemorrhage, intraventricular (principal); I10 Essential (primary) hypertension; Z79.899 Other long term (current) drug therapy
CPT/HCPCS: 36415; 70450; 71045; 80048; 80061; 80076; 84484; 85025; 85730; 93005; 96365; 96366; 96375; 96376; 99291; J0360; J1953; J2405 ×2; J3490; Q9967; 70030-TC; A4663; J7030; J7050

== ENCOUNTER 2019-05-29 16:29 | Inpatient (IN) | payer MEDICARE, MEDICAID ==
[~2019-05-29] VITALS: Ht 165.1 cm; Wt 54.4 kg
[~2019-05-29 16:29] MED LIST changes: -AMLO10TA7 PO; -ATOR40TA PO; -DOCU100C36 PO; -IOHEXOL 350 100 ML INFUS..BTL ONE; -IV NORMAL SALINE 250 ML IV ONE; -LABETALOL HCL 100 MG/20 ML VIAL IV ONE; -LABETALOL HCL 100 MG/20 ML VIAL ONE; -LEVETIRACETAM 500 MG/5 ML VIAL IV ONE; -LEVETIRACETAM IV 500 MG in IV DEXTROSE 5% 100 ML IV ONE; -METO25TA6 PO; -ONDA4TAB5 PO; -ONDANSETRON 4 MG/2 ML VIAL IV ONE; -ONDANSETRON 4 MG/2 ML VIAL ONE; -PANT40TA4 PO; -POLY17PO4 PO; -SWABABLE VALVE TRANSFER SET EA MC ONE; -hydrALAZINE HCL 20 MG/1 ML VIAL IV ONE; -hydrALAZINE HCL 20 MG/1 ML VIAL ONE
[2019-05-29 21:46] VITALS: BP 123/66
[2019-05-29] MEDS ORDERED: AMLO10TA7 PO (22:24)
[2019-05-29] MEDS ORDERED: ONDA4TAB5 PO (22:24)
[2019-05-29] MEDS ORDERED: PANT40TA4 PO (22:24)
[2019-05-29] MEDS ORDERED: POLY17PO4 PO (22:24)
[2019-05-29] MEDS ORDERED: METO25TA6 PO (22:24)
[2019-05-29] MEDS ORDERED: ATOR40TA PO (22:24)
[2019-05-29] MEDS ORDERED: DOCU100C36 PO (22:24)
--- NOTE | 2019-05-29 23:12 | NUR ---
Pt arrived in the unit at 1940 via gurney from [facility]. Son at bedside. VS WNL. Pertinent assessment done. Dr. Reynaga notified of admission. Emmanuel ANDERSON aware of admission, relayed medications, will do med recon in the morning as per DNP. Pertinent assessment done. MRSA swab sent to lab. Oriented pt to the unit. NIHSS done. Safety measures maintained. Call light and personal belongings within reach. Will continue to monitor.
[2019-05-30 06:45] VITALS: BP 118/60
[2019-05-30 08:50] VITALS: BP 144/80
[2019-05-30] MEDS ORDERED: APIXABAN 5 MG TABLET PO ONE (11:30)
[2019-05-30] MEDS: PANTOPRAZOLE SODIUM 40 MG TABLET.DR PO SCH (11:56)
[2019-05-30] MEDS: AMLODIPINE 10 MG TABLET PO SCH (11:57)
[2019-05-30] MEDS: LEVOTHYROXINE SODIUM 100 MCG TABLET PO SCH (11:58)
[2019-05-30] MEDS ORDERED: ONDANSETRON HCL 4 MG TABLET PO PRN (12:00)
[2019-05-30] MEDS ORDERED: APIXABAN 5 MG PO SCH (17:00)
[2019-05-30] MEDS: APIXABAN 2.5 MG PO SCH (17:23)
[2019-05-30] MEDS: METOPROLOL TARTRATE 25 MG TABLET PO SCH (17:24)
[2019-05-30] MEDS: MIRALAX 17 GM POWD.PACK PO SCH (17:24)
[2019-05-30 17:54] VITALS: BP 143/78
[2019-05-30] MEDS: DOCUSATE SODIUM 100 MG CAPSULE PO SCH (21:13)
[2019-05-30] MEDS: ATORVASTATIN 40 MG TABLET PO SCH (21:13)
[2019-05-30 21:42] VITALS: BP 136/73
[2019-05-31] MEDS: ACETAMINOPHEN ES 500 MG TABLET PO PRN ×2 (00:35→21:56)
[2019-05-31 05:39] VITALS: BP 152/71
[2019-05-31] MEDS: PANTOPRAZOLE SODIUM 40 MG TABLET.DR PO SCH (06:28)
--- NOTE | 2019-05-31 06:51 | NUR ---
Pt slept comfortably at night. No acute distress noted. Denies pain/ discomfort. All needs attended to promptly. Pt independent when turning and repositioning, encouraged and checked q2h. Both heels offloaded. Safety measures maintained. Call light and personal belongings within reach. Will continue to monitor.
[2019-05-31] MEDS: APIXABAN 2.5 MG PO SCH ×2 (09:17→17:55)
[2019-05-31] MEDS: AMLODIPINE 10 MG TABLET PO SCH (09:18)
[2019-05-31] MEDS: MIRALAX 17 GM POWD.PACK PO SCH ×2 (09:18→17:54)
[2019-05-31] MEDS: METOPROLOL TARTRATE 25 MG TABLET PO SCH ×2 (09:18→17:54)
[2019-05-31] MEDS: LEVOTHYROXINE SODIUM 100 MCG TABLET PO SCH (09:26)
[2019-05-31 10:01] VITALS: BP 135/62
[2019-05-31 16:00] VITALS: BP 146/77
[2019-05-31 19:30] VITALS: BP 136/69
--- NOTE | 2019-05-31 20:00 | NUR ---
received report from offgoing nurse initial assessment done pt overall appearances fair no acute distress noted comfort and safety maintained
[2019-05-31] MEDS: ATORVASTATIN 40 MG TABLET PO SCH (21:56)
[2019-05-31] MEDS: DOCUSATE SODIUM 100 MG CAPSULE PO SCH (21:56)
--- NOTE | 2019-05-31 23:00 | NUR ---
was given apap 500 po for gen discomfort with effect
[2019-06-01 04:32] VITALS: BP 143/85
[2019-06-01] MEDS: LEVOTHYROXINE SODIUM 100 MCG TABLET PO SCH (06:39)
[2019-06-01] MEDS: PANTOPRAZOLE SODIUM 40 MG TABLET.DR PO SCH (06:39)
[2019-06-01 07:15] LABS: BASOPHILS # (AUTO) 0.1 K/uL (0.0-8.0); EOSINOPHILS # (AUTO) 0.2 K/uL (0.0-0.7); EOSINOPHILS % (AUTO) 3.1 % (0.0-7.0); HEMATOCRIT 40.2 % (31.2-41.9); HEMOGLOBIN 13.4 g/dL (10.9-14.3); LYMPHOCYTES # (AUTO) 0.9 K/uL (20.0-40.0); LYMPHOCYTES % (AUTO) 13.2 % (20.5-51.5); MEAN CORPUSCULAR HEMOGLOBIN 31.4 uug (24.7-32.8); MEAN CORPUSCULAR HGB CONC 33 g/dL (32.3-35.6); MONOCYTES # (AUTO) 0.8 K/uL (2.0-10.0); MONOCYTES % (AUTO) 11.1 % (0.0-11.0); NEUTROPHILS # (AUTO) 4.9 K/uL (1.8-8.9); NEUTROPHILS % (AUTO) 71.6 % (38.5-71.5); PLATELET COUNT (AUTO) 262 K/uL (179-408); RED BLOOD CELL COUNT(AUTO) 4.28 MIL/uL (3.63-4.92); WHITE BLOOD COUNT (AUTO) 6.9 K/uL (3.8-11.8)
--- NOTE | 2019-06-01 07:23 | NUR ---
pt condition remains stable report given to incoming nurse all questions answered
--- NOTE | 2019-06-01 07:26 | NUR ---
PATIENT IS SITTING IN WHEELCHAIR, NO SOB, NO ACUTE DISTRESS NOTED
[2019-06-01 08:14] LABS: ALANINE AMINOTRANSFERASE 21 U/L (14-59); ALKALINE PHOSPHATASE 143 U/L (50-136); ASPARTATE AMINOTRANSFERASE 19 U/L (15-37); BILIRUBIN,TOTAL 1.3 mg/dL (0.2-1.0); CARBON DIOXIDE 30 mmol/L (21-32); CHLORIDE 98 mmol/L (98-107); CHOLESTEROL 140 mg/dL (<200); CREATININE 0.5 mg/dL (0.6-1.3); GLUCOSE 110 mg/dL (74-106); HDL CHOLESTEROL 79 mg/dL (40-60); PHOSPHOROUS 3.5 mg/dL (2.5-4.9); POTASSIUM 3.5 mmol/L (3.5-5.1); TRIGLYCERIDES 36 MG/DL (30-150); UREA NITROGEN, BLOOD 12 mg/dL (7-18)
[2019-06-01 08:29] VITALS: BP 145/61
[2019-06-01] MEDS: METOPROLOL TARTRATE 25 MG TABLET PO SCH ×2 (08:36→17:24)
[2019-06-01] MEDS: MIRALAX 17 GM POWD.PACK PO SCH ×2 (08:36→17:24)
[2019-06-01] MEDS: AMLODIPINE 10 MG TABLET PO SCH (08:36)
[2019-06-01] MEDS: APIXABAN 2.5 MG PO SCH ×2 (08:38→17:51)
[2019-06-01 10:20] LABS: THYROID STIMULATING HORMONE 3.801 mIU/mL (0.358-3.740)
--- NOTE | 2019-06-01 12:53 | NUR ---
INDIVIDUALIZE PLAN OF CARE
--- NOTE | 2019-06-01 15:57 | NUR ---
patient alert, awake, no sob, resp even nonlabored,skin warm and dry to touch, no acute distress noted, tolerated meds and meals well, participated in rehab services, all needs attended timely, call light with in reach
[2019-06-01 16:13] VITALS: BP 131/74
--- NOTE | 2019-06-01 16:27 | NUR ---
TSH, and sodium is reported to MD yi, with No New order.
--- NOTE | 2019-06-01 19:40 | NUR ---
Patient received in bed, AAO x3. Able to make needs known.No acute distress or SOB noted. On room air. No complain of pain at this time. Physical assessment done. IV line in right AC G20, no sign of inflammation. Stroke scale performed. Safety measures observed. Fall precaution maintained. Bed in low position, side rails up x2 for safety, brake and alarm on. call light and personal belongings within reach. Continue to monitor.
[2019-06-01 20:15] VITALS: BP 129/71
[2019-06-01] MEDS: ATORVASTATIN 40 MG TABLET PO SCH (20:30)
[2019-06-01] MEDS: DOCUSATE SODIUM 100 MG CAPSULE PO SCH (20:30)
[2019-06-02 04:44] VITALS: BP 144/86
--- NOTE | 2019-06-02 05:37 | NUR ---
End of the shift note Patient was stable throughout the shift and has a good sleep last night. No acute distress or SOB noted. On room air. No Complain of pain. All due medications administered and well tolerated. IV line flushed, patent, no sign of inflammation. Physical assessment done. Stroke scale performed. Safety measures observed. Fall precaution maintained. All needs attended promptly. Bed in low position, side rails up x2 for safety, brake and alarm on. Call light and personal belongings within reach. Continue to monitor and will endorse to the day shift nurse accordingly.
[2019-06-02] MEDS: LEVOTHYROXINE SODIUM 100 MCG TABLET PO SCH (06:31)
[2019-06-02] MEDS: PANTOPRAZOLE SODIUM 40 MG TABLET.DR PO SCH (06:31)
[2019-06-02 07:38] VITALS: BP 125/72
[2019-06-02] MEDS: APIXABAN 2.5 MG PO SCH ×2 (08:50→16:22)
[2019-06-02] MEDS: AMLODIPINE 10 MG TABLET PO SCH (08:52)
[2019-06-02] MEDS: METOPROLOL TARTRATE 25 MG TABLET PO SCH ×2 (08:53→16:17)
[2019-06-02] MEDS: MIRALAX 17 GM POWD.PACK PO SCH ×2 (08:53→16:22)
[2019-06-02] MEDS: CYANOCOBALAMIN 1000 MCG/ML VIAL IM SCH (08:55)
--- NOTE | 2019-06-02 15:13 | NUR ---
Report and Pt received this morning. Pt assessed, AAOX3, NAD, no SOB on 2L NC, and denies pain. Pt able to make needs known, complaint with medication administration. Pt assisted to the bathroom, x1 assist for voiding and BM. VSS, Pt refusing second BP medication r/t BP of 125/72, hr 87. Pt teaching provided r/t routine medication and the correlation to stroke prevention. NIHSS done. Pt ate lunch with family visiting. Call light and personal items placed within reach. All comfort and safety measures implemented. Will continue to monitor.
[2019-06-02 15:53] VITALS: BP 140/70
[2019-06-02] MEDS: ATORVASTATIN 40 MG TABLET PO SCH (20:13)
[2019-06-02] MEDS: DOCUSATE SODIUM 100 MG CAPSULE PO SCH (20:13)
[2019-06-02 20:48] VITALS: BP 114/61
[2019-06-03 04:55] VITALS: BP 146/80
[2019-06-03] MEDS: LEVOTHYROXINE SODIUM 100 MCG TABLET PO SCH (06:27)
[2019-06-03] MEDS: PANTOPRAZOLE SODIUM 40 MG TABLET.DR PO SCH (06:27)
--- NOTE | 2019-06-03 07:05 | NUR ---
Patient received in bed, AAO x3. Able to make needs known.No acute distress or SOB noted. On room air. No complain of pain at this time. Physical assessment done. IV line removed. Stroke scale performed. Safety measures observed. Fall precaution maintained. Bed in low position, side rails up x2 for safety, brake and alarm on. call light and personal belongings within reach. Continue to monitor.
[2019-06-03 07:55] VITALS: BP 150/75
[2019-06-03] MEDS: CYANOCOBALAMIN 1000 MCG/ML VIAL IM SCH (08:56)
[2019-06-03] MEDS: METOPROLOL TARTRATE 25 MG TABLET PO SCH ×2 (08:59→17:54)
[2019-06-03] MEDS: AMLODIPINE 10 MG TABLET PO SCH (08:59)
[2019-06-03] MEDS: APIXABAN 2.5 MG PO SCH ×2 (09:00→17:53)
[2019-06-03] MEDS: MIRALAX 17 GM POWD.PACK PO SCH ×2 (09:01→17:54)
[2019-06-03 16:19] VITALS: BP 142/79
--- NOTE | 2019-06-03 19:20 | NUR ---
Awake, in bed, denies any pain/discomforts at this time. Safety measure and fall precaution maintained. Continue care as planned.
[2019-06-03] MEDS: ATORVASTATIN 40 MG TABLET PO SCH (20:19)
[2019-06-03] MEDS: DOCUSATE SODIUM 100 MG CAPSULE PO SCH (20:19)
[2019-06-03 20:27] VITALS: BP 123/72
[2019-06-04 05:00] VITALS: BP 140/76
[2019-06-04] MEDS: LEVOTHYROXINE SODIUM 100 MCG TABLET PO SCH (06:20)
[2019-06-04] MEDS: PANTOPRAZOLE SODIUM 40 MG TABLET.DR PO SCH (06:20)
[2019-06-04 08:34] VITALS: BP 143/82
[2019-06-04] MEDS: METOPROLOL TARTRATE 25 MG TABLET PO SCH ×2 (08:55→16:27)
[2019-06-04] MEDS: CYANOCOBALAMIN 1000 MCG/ML VIAL IM SCH (08:56)
[2019-06-04] MEDS: AMLODIPINE 10 MG TABLET PO SCH (08:56)
[2019-06-04] MEDS: APIXABAN 2.5 MG PO SCH ×2 (08:57→16:28)
[2019-06-04] MEDS: MIRALAX 17 GM POWD.PACK PO SCH ×2 (09:00→16:28)
--- NOTE | 2019-06-04 09:30 | NUR ---
Received pt. in bed in no distress. A/OX4 verbally responsive and able to make her needs known. No new skin condition. All needs attended and met promptly. All due medications given as ordered and tolerated well. Safety measures in place. Call light and all frequently used items within pt. reach. Will continue to monitor accordingly.
[2019-06-04 16:09] VITALS: BP 141/72
--- NOTE | 2019-06-04 18:04 | NUR ---
End of shift note: No significant change during this shift. All needs attended and met promptly. Safety measures in placed. No s/sx of bleeding, on Eliquis. Bed in low position, brake on, side rails up x2 as an enabler. Call light and all frequently used items within pt. reach. Will endorse to next shift accordingly.
--- NOTE | 2019-06-04 19:20 | NUR ---
Sleeping during initial rounds. No s/s of respiratory distress. Safety measure and fall precaution maintained. Continue current plan of care.
[2019-06-04] MEDS: ATORVASTATIN 40 MG TABLET PO SCH (20:23)
[2019-06-04] MEDS: DOCUSATE SODIUM 100 MG CAPSULE PO SCH (20:23)
[2019-06-04 21:38] VITALS: BP 127/63
[2019-06-05 04:00] VITALS: BP 144/85
[2019-06-05] MEDS: LEVOTHYROXINE SODIUM 100 MCG TABLET PO SCH (06:19)
[2019-06-05] MEDS: PANTOPRAZOLE SODIUM 40 MG TABLET.DR PO SCH (06:19)
--- NOTE | 2019-06-05 07:33 | NUR ---
Shift End report: VSS. Slept well. No complaint presented throughout the night. All needs attended and met. No significant event reported. Continue current rehab plan of care.
[2019-06-05 07:53] VITALS: BP 144/90
[2019-06-05] MEDS: METOPROLOL TARTRATE 25 MG TABLET PO SCH ×2 (10:15→18:28)
[2019-06-05] MEDS: AMLODIPINE 10 MG TABLET PO SCH (10:15)
[2019-06-05] MEDS: CYANOCOBALAMIN 1000 MCG/ML VIAL IM SCH (10:15)
[2019-06-05] MEDS: APIXABAN 2.5 MG PO SCH ×2 (10:18→18:28)
[2019-06-05] MEDS: MIRALAX 17 GM POWD.PACK PO SCH ×2 (10:20→17:00)
--- NOTE | 2019-06-05 13:22 | NUR ---
INTERDISCIPLINARY TEAM CONFERENCE
[2019-06-05 15:54] VITALS: BP 131/64
[2019-06-05] MEDS: ATORVASTATIN 40 MG TABLET PO SCH (20:03)
[2019-06-05] MEDS: DOCUSATE SODIUM 100 MG CAPSULE PO SCH (20:03)
[2019-06-05 20:38] VITALS: BP 123/66
--- NOTE | 2019-06-06 03:39 | NUR ---
Patient received in bed, AAO x3. Able to make needs known.No acute distress or SOB noted. On room air. No complain of pain at this time. Physical assessment done. All medications given as ordered and well tolerated. Stroke scale performed. Safety measures observed. Fall precaution maintained. All needs attended promptly. Bed in low position, side rails up x2 for safety, brake and alarm on. call light and personal belongings within reach. Continue to monitor and will endorse to oncoming nurse accordingly.
[2019-06-06] MEDS: LEVOTHYROXINE SODIUM 100 MCG TABLET PO SCH (06:13)
[2019-06-06] MEDS: PANTOPRAZOLE SODIUM 40 MG TABLET.DR PO SCH (06:13)
[2019-06-06 06:43] VITALS: BP 148/80
[2019-06-06 08:00] VITALS: BP 134/64
[2019-06-06] MEDS: CYANOCOBALAMIN 1000 MCG/ML VIAL IM SCH (09:09)
[2019-06-06] MEDS: MIRALAX 17 GM POWD.PACK PO SCH ×2 (09:09→17:00)
[2019-06-06] MEDS: METOPROLOL TARTRATE 25 MG TABLET PO SCH ×2 (09:10→17:35)
[2019-06-06] MEDS: AMLODIPINE 10 MG TABLET PO SCH (09:10)
[2019-06-06] MEDS: APIXABAN 2.5 MG PO SCH ×2 (09:17→17:39)
--- NOTE | 2019-06-06 10:15 | NUR ---
Patient noted sitting in wheelchair, no complaints of pain, no signs of distress noted, call light in reach, bed locked and in lowest position, took all AM medications, all needs met at this time
[2019-06-06 15:46] VITALS: BP 133/68
--- NOTE | 2019-06-06 19:30 | NUR ---
PATIENT ALERT AND ORIENTED X 4.PATIENT IN BED WATCHING TV. NO C/O OF PAIN OR SOB AT THIS TIME. ASSISTED PATIENT WITH NIGHT TIME ADLS. SIDE RAILS UP BILATERALLY FOR SAFETY. CALL LIGHT AND FREQUENTLY USED ITEMS WITHIN REACH. WILL CONTINUE TO MONITOR.
[2019-06-06] MEDS: ATORVASTATIN 40 MG TABLET PO SCH ×2 (20:46→20:49)
[2019-06-06] MEDS: DOCUSATE SODIUM 100 MG CAPSULE PO SCH ×2 (20:47→20:49)
[2019-06-06 20:50] VITALS: BP 137/71
--- NOTE | 2019-06-06 20:52 | NUR ---
Patient refuse 2100 does of colace and lipitor. medications wasted because pills had already been popped from the case. Will continue to monitor.
[2019-06-07 05:59] VITALS: BP 153/71
[2019-06-07] MEDS: LEVOTHYROXINE SODIUM 100 MCG TABLET PO SCH (06:13)
[2019-06-07] MEDS: PANTOPRAZOLE SODIUM 40 MG TABLET.DR PO SCH (06:13)
[2019-06-07 08:00] VITALS: BP 152/94
--- NOTE | 2019-06-07 08:15 | NUR ---
Patient noted being assisted to restroom by operator cavity pump, no complaints of pain, no signs of distress noted, call lighting in reach, patient assisted to wheelchair, wheelchair locked with walker in reach, all needs met at this time.
[2019-06-07] MEDS: METOPROLOL TARTRATE 25 MG TABLET PO SCH ×2 (08:38→17:24)
[2019-06-07] MEDS: CYANOCOBALAMIN 1000 MCG/ML VIAL IM SCH (08:38)
[2019-06-07] MEDS: AMLODIPINE 10 MG TABLET PO SCH (08:39)
[2019-06-07] MEDS: APIXABAN 2.5 MG PO SCH ×2 (08:53→17:24)
[2019-06-07] MEDS: MIRALAX 17 GM POWD.PACK PO SCH ×2 (08:53→17:00)
[2019-06-07 16:36] VITALS: BP 131/72
--- NOTE | 2019-06-07 19:30 | NUR ---
Patient received in bed, AAO x3. Able to make needs known.No acute distress or SOB noted. On room air. No complain of pain at this time. Physical assessment done. Stroke scale performed. Safety measures observed. Fall precaution maintained. Bed in low position, side rails up x2 for safety, brake and alarm on. call light and personal belongings within reach. Continue to monitor.
[2019-06-07] MEDS: DOCUSATE SODIUM 100 MG CAPSULE PO SCH (20:07)
[2019-06-07] MEDS: ATORVASTATIN 40 MG TABLET PO SCH (20:08)
[2019-06-07 21:03] VITALS: BP 117/63
[2019-06-08 04:20] VITALS: BP 158/88
--- NOTE | 2019-06-08 05:14 | NUR ---
Patient refuse Colace 100 mg and Lipitor 4 mg. risks and benefits explained. Patient demonstrated understanding. still refused. Lipitor was returne. But Colace wasted because pill had already been popped from the case. Will continue to monitor.
[2019-06-08] MEDS: PANTOPRAZOLE SODIUM 40 MG TABLET.DR PO SCH (06:30)
[2019-06-08] MEDS: LEVOTHYROXINE SODIUM 100 MCG TABLET PO SCH (06:30)
[2019-06-08 08:00] VITALS: BP 128/74
[2019-06-08] MEDS: AMLODIPINE 10 MG TABLET PO SCH (08:36)
[2019-06-08] MEDS: METOPROLOL TARTRATE 25 MG TABLET PO SCH ×2 (08:37→16:55)
[2019-06-08] MEDS: MIRALAX 17 GM POWD.PACK PO SCH ×2 (08:38→16:58)
[2019-06-08] MEDS: CYANOCOBALAMIN 1000 MCG/ML VIAL IM SCH (08:38)
[2019-06-08] MEDS: APIXABAN 2.5 MG PO SCH ×2 (08:38→16:56)
--- NOTE | 2019-06-08 10:30 | NUR ---
Patient noted sitting in wheelchair, no complaints of pain, no signs of distress noted, call lighting in reach, wheelchair locked with walker in reach, all needs met at this time.
[2019-06-08 17:10] VITALS: BP 124/70
[2019-06-08 19:36] VITALS: BP 121/61
[2019-06-08] MEDS: DOCUSATE SODIUM 100 MG CAPSULE PO SCH (21:00)
[2019-06-08] MEDS: ATORVASTATIN 40 MG TABLET PO SCH (21:00)
--- NOTE | 2019-06-08 21:43 | NUR ---
Patient refuse Colace 100 mg and Lipitor 4 mg. risks and benefits explained. Patient demonstrated understanding. Offered her two times. still refused. Medication were returned. Will continue to monitor.
[2019-06-09 05:04] VITALS: BP 149/76
--- NOTE | 2019-06-09 05:41 | NUR ---
End of the shift note Patient was stable throughout the shift and has a good sleep last night. No acute distress or SOB noted. On room air. No Complain of pain. Physical assessment done. Stroke scale performed. Safety measures observed. Fall precaution maintained. All needs attended promptly. Bed in low position, side rails up x2 for safety, brake and alarm on. Call light and personal belongings within reach. Continue to monitor and will endorse to the day shift nurse accordingly.
[2019-06-09] MEDS: LEVOTHYROXINE SODIUM 100 MCG TABLET PO SCH (06:05)
[2019-06-09] MEDS: PANTOPRAZOLE SODIUM 40 MG TABLET.DR PO SCH (06:05)
[2019-06-09 08:22] VITALS: BP 151/69
[2019-06-09] MEDS: MIRALAX 17 GM POWD.PACK PO SCH ×2 (08:28→17:33)
[2019-06-09] MEDS: METOPROLOL TARTRATE 25 MG TABLET PO SCH ×2 (08:28→17:33)
[2019-06-09] MEDS: AMLODIPINE 10 MG TABLET PO SCH (08:28)
[2019-06-09] MEDS: APIXABAN 2.5 MG PO SCH ×2 (08:29→17:34)
[2019-06-09] MEDS: DOCUSATE SODIUM 100 MG CAPSULE PO SCH (20:37)
[2019-06-09] MEDS: ATORVASTATIN 40 MG TABLET PO SCH (20:37)
[2019-06-09 21:27] VITALS: BP 121/67
[2019-06-10] MEDS: PANTOPRAZOLE SODIUM 40 MG TABLET.DR PO SCH (06:42)
[2019-06-10] MEDS: LEVOTHYROXINE SODIUM 100 MCG TABLET PO SCH (06:42)
[2019-06-10 07:17] VITALS: BP 152/62
[2019-06-10 07:30] VITALS: BP_SYST 115; BP_SYST 131; BP_DIAS 60; BP_DIAS 70
[2019-06-10] MEDS: METOPROLOL TARTRATE 25 MG TABLET PO SCH ×2 (08:26→17:10)
[2019-06-10] MEDS: AMLODIPINE 10 MG TABLET PO SCH (08:26)
[2019-06-10] MEDS: APIXABAN 2.5 MG PO SCH ×2 (08:28→17:11)
[2019-06-10] MEDS: MIRALAX 17 GM POWD.PACK PO SCH ×2 (08:32→17:00)
--- NOTE | 2019-06-10 09:30 | NUR ---
Received pt. in bed in no distress. A/OX4 verbally responsive and able to make her needs known. No new skin condition. On RA with Sp02 of 93%. No. All needs attended and met promptly. All due medications given as ordered and tolerated well. Refused Miralax this AM, risk and benefits explained and discussed, last BM: 06/09/19. No s/sx of bleeding on Eliquis. Safety measures in place. Call light and all frequently used items within pt. reach. Will continue to monitor accordingly.
[2019-06-10 15:52] VITALS: BP 139/68
--- NOTE | 2019-06-10 18:34 | NUR ---
End of shift note: No significant change during this shift. All needs attended and met promptly. Pt. showered in AM. Safety measures in placed. Bed in low position, brake on, side rails up x2 as an enabler. SCD applied to kevin lower ext for VTE/DVT ppx. DTR to bring pt. own med (Eliquis) on 06/11/2019 around noon time. Call light and all frequently used items within pt. reach. Will endorse to next shift accordingly.
[2019-06-10 19:27] VITALS: BP 117/67
--- NOTE | 2019-06-10 19:30 | NUR ---
Patient alert and oriented x 3-4. Verbally aggressive toward this staff member at this time. Patient resting in bed upon assessment. Requesting that this nurse take vital signs and "get out". No C/O pain or SOB at this time. Vital signs within normal limits. Call light and frequently used items within reach. Will continue to monitor.
[2019-06-10] MEDS: ATORVASTATIN 40 MG TABLET PO SCH (20:32)
[2019-06-10] MEDS: DOCUSATE SODIUM 100 MG CAPSULE PO SCH (20:32)
--- NOTE | 2019-06-10 21:15 | NUR ---
Patient refuse 2100 dose of colace and lipitor. Patient stating that she is sleeping and does not want to be disturbed. Will continue to monitor.
[2019-06-11 05:43] VITALS: BP 147/72
[2019-06-11] MEDS: LEVOTHYROXINE SODIUM 100 MCG TABLET PO SCH (06:18)
[2019-06-11] MEDS: PANTOPRAZOLE SODIUM 40 MG TABLET.DR PO SCH (06:18)
[2019-06-11 07:56] VITALS: BP 148/72
[2019-06-11] MEDS: APIXABAN 2.5 MG PO SCH ×2 (08:32→17:19)
[2019-06-11] MEDS: METOPROLOL TARTRATE 25 MG TABLET PO SCH ×2 (08:33→17:18)
[2019-06-11] MEDS: AMLODIPINE 10 MG TABLET PO SCH (08:33)
[2019-06-11] MEDS: MIRALAX 17 GM POWD.PACK PO SCH ×2 (08:34→17:00)
--- NOTE | 2019-06-11 08:53 | NUR ---
Received pt. in bed this AM, no distress noted. A/OX4 verbally responsive and able to make her needs known. On RA with Sp02 of 94%. X1 BM this AM. No. All needs attended and met promptly. Pt. own med (Eliquis) will be brought in by DTR around noon. Received Eliquis 5 mg 1 tab from pharmacy, 2.5 mg given to pt this AM. All due medications given as ordered and tolerated well. Refused Miralax this AM, risk and benefits explained and discussed. No s/sx of bleeding on Eliquis. No new skin condition, cleanse sacral area and applied z-guard then covered with mepilex dsg. Safety measures in place. Call light and all frequently used items within pt. reach. Will continue to monitor accordingly.
[2019-06-11] MEDS ORDERED: APIXABAN 5 MG TABLET PO SCH (09:00)
[2019-06-11] MEDS ORDERED: APIXABAN 5 MG TABLET PO ONE (09:00)
[2019-06-11] MEDS ORDERED: Z GUARD REMEDY PASTE 57 GM TUBE TOP PRN (10:30)
[2019-06-11 14:30] VITALS: BP 122/61
--- NOTE | 2019-06-11 18:51 | NUR ---
End of shift note: No significant change during this shift. All needs attended and met promptly. Safety measures in placed. Bed in low position, brake on, side rails up x2 as an enabler. Call light and all frequently used items within pt. reach. Will endorse to next shift accordingly.
[2019-06-11 19:54] VITALS: BP 102/66
[2019-06-11] MEDS: ATORVASTATIN 40 MG TABLET PO SCH (20:17)
[2019-06-11] MEDS: DOCUSATE SODIUM 100 MG CAPSULE PO SCH (20:17)
--- NOTE | 2019-06-11 20:45 | NUR ---
Received pt sleeping comfortably. Aroused easily to verbal stimuli. AAO x3. No acute distress noted. Denies pain/ discomfort. Pt refused colace. Risks and benefits explained, still refused. Safety measures maintained. Call light and personal belongings within reach. Will continue to monitor.
[2019-06-12 05:06] VITALS: BP 128/83
[2019-06-12] MEDS: LEVOTHYROXINE SODIUM 100 MCG TABLET PO SCH (06:15)
[2019-06-12] MEDS: PANTOPRAZOLE SODIUM 40 MG TABLET.DR PO SCH (06:17)
[2019-06-12] MEDS: METOPROLOL TARTRATE 25 MG TABLET PO SCH ×2 (08:39→16:09)
[2019-06-12] MEDS: AMLODIPINE 10 MG TABLET PO SCH (08:39)
[2019-06-12] MEDS: MIRALAX 17 GM POWD.PACK PO SCH ×2 (08:43→17:00)
[2019-06-12] MEDS: APIXABAN 2.5 MG PO SCH ×2 (08:43→16:11)
[2019-06-12 09:27] VITALS: BP 133/68
--- NOTE | 2019-06-12 10:01 | NUR ---
Received pt. in bed in no distress. A/OX4 verbally responsive and able to make her needs known. No new skin condition. All needs attended and met promptly. All due medications given as ordered and tolerated well. No s/sx of bleeding on Eliquis. Safety measures in place. Call light and all frequently used items within pt. reach. Will continue to monitor accordingly.
--- NOTE | 2019-06-12 15:50 | NUR ---
INTERDISCIPLINARY TEAM CONFERENCE
[2019-06-12 15:59] VITALS: BP 128/63
[2019-06-12] MEDS: DOCUSATE SODIUM 100 MG CAPSULE PO SCH (21:00)
[2019-06-12] MEDS: ATORVASTATIN 40 MG TABLET PO SCH (21:05)
[2019-06-12 21:58] VITALS: BP 126/63
--- NOTE | 2019-06-12 22:37 | NUR ---
received patient in bed sleeping, arouseable to verbal stimuli. Patient in No acute distress. Breathing is even and unlabored. Skin warm and dry to touch. Patient is verbally able to express needs. Vital signs taken and stable. Due medications administered as ordered and scheduled and tolerated well. Skin kept clean and dry, made comfortable. Repositioned as needed, safety measures in place, call light left within easy reach and will continue to monitor
[2019-06-13 05:11] VITALS: BP 137/78
[2019-06-13] MEDS: LEVOTHYROXINE SODIUM 100 MCG TABLET PO SCH (06:05)
[2019-06-13] MEDS: PANTOPRAZOLE SODIUM 40 MG TABLET.DR PO SCH (06:05)
[2019-06-13 07:15] VITALS: BP 147/70
--- NOTE | 2019-06-13 07:56 | NUR ---
Patient assisted to restroom by metal building assembler at this time, no complaints of pain, no signs of distress noted, call light in reach, bed locked and in lowest position
[2019-06-13] MEDS: METOPROLOL TARTRATE 25 MG TABLET PO SCH ×2 (08:14→17:04)
[2019-06-13] MEDS: MIRALAX 17 GM POWD.PACK PO SCH ×2 (08:15→17:00)
[2019-06-13] MEDS: AMLODIPINE 10 MG TABLET PO SCH (08:15)
[2019-06-13] MEDS: APIXABAN 2.5 MG PO SCH ×2 (08:16→17:09)
[2019-06-13 19:44] VITALS: BP 123/65
[2019-06-13] MEDS: DOCUSATE SODIUM 100 MG CAPSULE PO SCH (20:22)
[2019-06-13] MEDS: ATORVASTATIN 40 MG TABLET PO SCH (20:23)
[2019-06-14 05:18] VITALS: BP 133/73
[2019-06-14 05:32] LABS: BASOPHILS # (AUTO) 0.1 K/uL (0.0-8.0); BASOPHILS % (AUTO) 1.4 % (0.0-2.0); EOSINOPHILS # (AUTO) 0.3 K/uL (0.0-0.7); EOSINOPHILS % (AUTO) 4.2 % (0.0-7.0); HEMATOCRIT 38.7 % (31.2-41.9); HEMOGLOBIN 13.3 g/dL (10.9-14.3); LYMPHOCYTES # (AUTO) 1.1 K/uL (20.0-40.0); LYMPHOCYTES % (AUTO) 15.9 % (20.5-51.5); MEAN CORPUSCULAR HEMOGLOBIN 31.5 uug (24.7-32.8); MEAN CORPUSCULAR HGB CONC 34 g/dL (32.3-35.6); MEAN CORPUSCULAR VOLUME 91.9 fL (75.5-95.3); MONOCYTES # (AUTO) 0.7 K/uL (2.0-10.0); MONOCYTES % (AUTO) 9.6 % (0.0-11.0); NEUTROPHILS # (AUTO) 4.7 K/uL (1.8-8.9); NEUTROPHILS % (AUTO) 68.9 % (38.5-71.5); PLATELET COUNT (AUTO) 243 K/uL (179-408); RED BLOOD CELL COUNT(AUTO) 4.21 MIL/uL (3.63-4.92); WHITE BLOOD COUNT (AUTO) 6.8 K/uL (3.8-11.8)
[2019-06-14 05:45] LABS: CARBON DIOXIDE 27 mmol/L (21-32); CHLORIDE 102 mmol/L (98-107); CREATININE 0.4 mg/dL (0.6-1.3); GLUCOSE 98 mg/dL (74-106); MAGNESIUM 1.8 mg/dL (1.8-2.4); PHOSPHOROUS 3.7 mg/dL (2.5-4.9); UREA NITROGEN, BLOOD 11 mg/dL (7-18)
[2019-06-14] MEDS: LEVOTHYROXINE SODIUM 100 MCG TABLET PO SCH (06:12)
[2019-06-14] MEDS: PANTOPRAZOLE SODIUM 40 MG TABLET.DR PO SCH (06:13)
[2019-06-14] MEDS: METOPROLOL TARTRATE 25 MG TABLET PO SCH ×2 (08:00→17:23)
[2019-06-14] MEDS: MIRALAX 17 GM POWD.PACK PO SCH ×2 (08:00→17:00)
[2019-06-14] MEDS: AMLODIPINE 10 MG TABLET PO SCH (08:00)
[2019-06-14] MEDS: APIXABAN 2.5 MG PO SCH ×2 (08:01→17:25)
--- NOTE | 2019-06-14 09:56 | NUR ---
Patient assisted to restroom at this time, no complaints of pain, no signs of distress noted, call light in reach, bed locked and in lowest position, all needs met at this time, took all AM medications
[2019-06-14 10:04] VITALS: BP 157/68
--- NOTE | 2019-06-14 19:05 | NUR ---
Awake, watching TV at this time. Denies any pain/discomforts at this time. Diaper changed due to bladder incontinence. Good rosendo care/skin care provided. Cooperative with care. Turned and repositioned for comfort. Safety measure and fall precaution maintained. Continue care as planned.
[2019-06-14 19:19] VITALS: BP 147/72
[2019-06-14 20:21] VITALS: BP 130/67
[2019-06-14] MEDS: ATORVASTATIN 40 MG TABLET PO SCH (20:39)
[2019-06-14] MEDS: DOCUSATE SODIUM 100 MG CAPSULE PO SCH (20:39)
[2019-06-15 05:47] VITALS: BP 149/83
[2019-06-15] MEDS: LEVOTHYROXINE SODIUM 100 MCG TABLET PO SCH (06:16)
[2019-06-15] MEDS: PANTOPRAZOLE SODIUM 40 MG TABLET.DR PO SCH (06:16)
--- NOTE | 2019-06-15 06:31 | NUR ---
Shift End Report: VSS. No complaint of pain/discomforts presented all night. Slept in between care. Assisted to the BR almost every 1-2 hours. Good rosendo care/skin care provided. Safety measure and fall precaution maintained. No significant event reported all night. Continue current rehab plan of ludivina.
[2019-06-15] MEDS: AMLODIPINE 10 MG TABLET PO SCH (08:11)
[2019-06-15] MEDS: METOPROLOL TARTRATE 25 MG TABLET PO SCH ×2 (08:11→16:55)
[2019-06-15] MEDS: MIRALAX 17 GM POWD.PACK PO SCH ×2 (08:11→16:55)
[2019-06-15] MEDS: APIXABAN 2.5 MG PO SCH ×2 (08:12→16:54)
--- NOTE | 2019-06-15 08:42 | NUR ---
Patient assisted to restroom and to wheelchair at this time, no complaints of pain, no signs of distress noted, call light in reach, bed locked and in lowest position, all needs met at this time, took all AM medications
[2019-06-15 09:00] VITALS: BP 146/74
[2019-06-15] MEDS ORDERED: CYANOCOBALAMIN 1000 MCG/ML VIAL IM SCH (09:00)
[2019-06-15 16:00] VITALS: BP 130/64
[2019-06-15] MEDS: ATORVASTATIN 40 MG TABLET PO SCH (20:36)
[2019-06-15] MEDS: DOCUSATE SODIUM 100 MG CAPSULE PO SCH (20:38)
[2019-06-15 20:54] VITALS: BP 126/62
--- NOTE | 2019-06-15 22:12 | NUR ---
Received pt resting in bed. AAO x3. No acute distress noted. Denies pain/ discomfort. Refused Colace, risks and benefits explained and still refused. Safety measures maintained. Call light within reach. Will continue to monitor.
[2019-06-16 04:05] VITALS: BP 134/75
[2019-06-16] MEDS: LEVOTHYROXINE SODIUM 100 MCG TABLET PO SCH (06:18)
[2019-06-16] MEDS: PANTOPRAZOLE SODIUM 40 MG TABLET.DR PO SCH (06:19)
[2019-06-16 08:02] VITALS: BP 133/64
[2019-06-16] MEDS: MIRALAX 17 GM POWD.PACK PO SCH ×2 (08:36→16:42)
[2019-06-16] MEDS: AMLODIPINE 10 MG TABLET PO SCH (08:36)
[2019-06-16] MEDS: METOPROLOL TARTRATE 25 MG TABLET PO SCH ×2 (08:37→16:42)
[2019-06-16] MEDS: APIXABAN 2.5 MG PO SCH ×2 (08:40→16:43)
[2019-06-16 16:00] VITALS: BP 123/68
--- NOTE | 2019-06-16 17:33 | NUR ---
Patient continue therapy for ambulation, unsteady gait and ADL activity. tolerated well/ compliance with medication. not in distress. Seen and examined by MD Judge. will continue monitor
[2019-06-16 20:06] VITALS: BP 119/73
[2019-06-16] MEDS: ATORVASTATIN 40 MG TABLET PO SCH (20:13)
[2019-06-16] MEDS: DOCUSATE SODIUM 100 MG CAPSULE PO SCH (20:15)
--- NOTE | 2019-06-16 20:47 | NUR ---
Received pt sitting in the wheelchair. AAO x3. No acute distress noted. Denies pain/ discomfort. Refused Colace. Risks and benefits explained, still refused. Other due med given as ordered. Safety measures maintained. Call light and personal belongings within reach. Will continue to monitor.
[2019-06-17 04:10] VITALS: BP 100/70
[2019-06-17] MEDS: PANTOPRAZOLE SODIUM 40 MG TABLET.DR PO SCH (06:15)
[2019-06-17] MEDS: LEVOTHYROXINE SODIUM 100 MCG TABLET PO SCH (06:15)
[2019-06-17 08:29] VITALS: BP 144/70
[2019-06-17] MEDS: MIRALAX 17 GM POWD.PACK PO SCH ×2 (09:00→17:00)
[2019-06-17] MEDS: METOPROLOL TARTRATE 25 MG TABLET PO SCH ×2 (09:01→17:09)
[2019-06-17] MEDS: AMLODIPINE 10 MG TABLET PO SCH (09:02)
[2019-06-17] MEDS: APIXABAN 2.5 MG PO SCH ×2 (09:08→17:10)
--- NOTE | 2019-06-17 14:11 | NUR ---
Pt received this morning sitting in wheelchair. Pt assessed, assisted to bathroom for voiding and small BMx1. Pt compliant with routine medication refusing Miralax. Pt assisted to shower. No acute distress or SOB noted on RA. Family brought food and visited with Pt for lunch. Pt assisted back to bed to rest. Plan of care for d/c tomorrow discussed, TMS signed. Pt seen by MD, no new orders at this time. Bed in locked and lowest position with side rails up x2. Bed alarm on. All safety and comfort measures implemented. Personal belongings and call light placed within reach. Will continue to monitor.
[2019-06-17 16:21] VITALS: BP 128/62
--- NOTE | 2019-06-17 19:43 | NUR ---
Patient alert and oriented x 3-4. Patient resting in bed upon assessment. No C/O pain or SOB at this time. Assisted with night time ADLs. Call light and frequently used items within reach. Will continue to monitor.
[2019-06-17 19:47] VITALS: BP 150/69
[2019-06-17] MEDS: ATORVASTATIN 40 MG TABLET PO SCH (20:18)
[2019-06-17] MEDS: DOCUSATE SODIUM 100 MG CAPSULE PO SCH (20:18)
[2019-06-18 05:53] VITALS: BP 133/69
[2019-06-18] MEDS: PANTOPRAZOLE SODIUM 40 MG TABLET.DR PO SCH (06:08)
[2019-06-18] MEDS: LEVOTHYROXINE SODIUM 100 MCG TABLET PO SCH (06:08)
[2019-06-18 07:46] VITALS: BP_SYST 129; BP_SYST 154; BP_DIAS 56; BP_DIAS 76
[2019-06-18 08:18] VITALS: BP 154/76
[2019-06-18] MEDS: AMLODIPINE 10 MG TABLET PO SCH (08:18)
[2019-06-18] MEDS: METOPROLOL TARTRATE 25 MG TABLET PO SCH (08:18)
[2019-06-18] MEDS: APIXABAN 2.5 MG PO SCH (08:20)
[2019-06-18] MEDS: MIRALAX 17 GM POWD.PACK PO SCH (08:21)
--- NOTE | 2019-06-18 10:56 | NUR ---
Patient continue therapy for ambulation and unsteady gait. tolerated well.For discharge around 3pm to [facility] for continuity of care. TMS signed and done. not in distress. will continue monitor
--- NOTE | 2019-06-18 15:05 | NUR ---
Patient discharge to [facility] rehab via [facility] in stable condition with grandson and 2 EMT around 3pm. not in distress. medication list and medical instruction report given to nurse.documents and instruction given to grandson, verbalize understanding. picture taken in the chart. no complaint voiced
== END 2019-06-18 15:05 | DRG 57 ==
PROVIDERS: ADMIT Physical Medicine & Rehabilitation Pain Medicine; ATTEND Physical Medicine & Rehabilitation Pain Medicine
DX: I69.154 Hemiplegia and hemiparesis following nontraumatic intracerebral hemorrhage affecting left non-dominant side (principal); D68.59 Other primary thrombophilia; I69.191 Dysphagia following nontraumatic intracerebral hemorrhage; I69.193 Ataxia following nontraumatic intracerebral hemorrhage; R13.10 Dysphagia, unspecified; E53.8 Deficiency of other specified B group vitamins; F01.50 Vascular dementia, unspecified severity, without behavioral disturbance, psychotic disturbance, mood disturbance, and anxiety; I48.2 Chronic atrial fibrillation; Z96.642 Presence of left artificial hip joint; I69.398 Other sequelae of cerebral infarction; Z91.81 History of falling; Z79.01 Long term (current) use of anticoagulants; E03.9 Hypothyroidism, unspecified; E78.5 Hyperlipidemia, unspecified; I10 Essential (primary) hypertension; M19.90 Unspecified osteoarthritis, unspecified site; M81.0 Age-related osteoporosis without current pathological fracture; I67.2 Cerebral atherosclerosis; R29.6 Repeated falls; I69.354 Hemiplegia and hemiparesis following cerebral infarction affecting left non-dominant side
CPT/HCPCS: 36415; 70450; 82652; 83735; 84100; 84443; 85025; A4663; A9150; J3420